=== PATIENT | male | born 1980 | race American Indian/Alaskan Native ===

== ENCOUNTER 2018-02-21 20:34 | Emergency (ER) | payer BC ==
[2018-02-21 20:57] VITALS: BP 160/94
[2018-02-21] MEDS ORDERED: TORADOL IM ONE (22:20)
--- NOTE | 2018-02-21 22:25 | Emergency Department Report ---
ED Neck Pain/Injury HPI - General Chief Complaint: Neck Pain/Injury Stated Complaint: NECK PAIN Time Seen by Provider: 02/21/18 22:20 Mode of arrival: Ambulatory Limitations: No Limitations - History of Present Illness Initial Comments: 37-year-old [place] male comes in for right posterior neck pain that radiates to his sats into his right shoulder. Patient was seen as followed in medical 2 weeks ago for the same issue and has not improved. Patient reports that he was placed on ibuprofen and muscle relaxant which she says has not helped. Patient reports that he woke up 2 weeks ago and thought it was a crick in his neck. Patient denies any trauma or injury to his neck or back. 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 Patient neck is constantly looking up and using a device to pick parts. Patient reports no past medical history currently takes no medications on a daily basis and has no known drug allergies. MD Complaint: neck pain -: week(s) (2) Place: home Radiation: right lateral Severity: severe Severity scale (0 -10): 10 Quality: sharp Consistency: intermittent Improves With: none Worsens With: movement of neck Context: turning/bending Associated Symptoms: none Treatments Prior to Arrival: Ibuprofen, other - Related Data Previous Rx's Medication Instructions Recorded Last Taken Type Naproxen [Naprosyn] 500 mg PO BID #20 tablet 02/21/18 Unknown Rx predniSONE [Deltasone] 20 mg PO QDAY 4 Days #4 tab 02/21/18 Unknown Rx traMADol [Ultram 50 MG tab] 50 mg PO Q6HR PRN #12 tablet 02/21/18 Unknown Rx Allergies Allergy/AdvReac Type Severity Reaction Status Date / Time No Known Allergies Allergy Unverified 02/21/18 20:57 ED Review of Systems ROS: Stated complaint: NECK PAIN Other details as noted in HPI Comment: All other systems reviewed and negative (muscle relaxant) Musculoskeletal: arthralgia (right side of neck) ED Past Medical Hx - Past Medical History Previous Medical History?: No - Surgical History Past Surgical History?: No - Social History Smoking Status: Unknown if ever smoked Substance Use Type: None - Medications Home Medications: Home Medications Medication Instructions Recorded Confirmed Last Taken Type Naproxen [Naprosyn] 500 mg PO BID #20 tablet 02/21/18 Unknown Rx predniSONE [Deltasone] 20 mg PO QDAY 4 Days #4 tab 02/21/18 Unknown Rx traMADol [Ultram 50 MG tab] 50 mg PO Q6HR PRN #12 tablet 02/21/18 Unknown Rx ED Physical Exam - General Limitations: No Limitations General appearance: alert, in no apparent distress - Head Head exam: Present: atraumatic, normocephalic - Eye Eye exam: Present: EOMI - ENT ENT exam: Present: mucous membranes moist - Neck Neck exam: Present: tenderness (paraspinal tenderness to the base on the right) , full ROM, other (full range of motion). Absent: meningismus, lymphadenopathy , thyromegaly - Respiratory Respiratory exam: Present: normal lung sounds bilaterally. Absent: respiratory distress - Cardiovascular Cardiovascular Exam: Present: regular rate, normal rhythm. Absent: systolic murmur, diastolic murmur, rubs, gallop - Extremities Exam Extremities exam: Present: full ROM - Expanded Neurological Exam Expanded Cranial nerves: EOM's Intact: Normal, Gag Reflex: Normal, Tongue Deviation: Normal, Nystagmus: Normal, Facial Sensation: Normal, Facial Palsy with Forehead Movement: Normal, Facial Palsy without Forehead Movement: Normal Cerebellar function: Finger to Nose: Normal, Heel to [place]: Normal, Romberg: Normal Sensory exam: Upper Extremity Light Touch: Normal, Upper Extremity Pin Prick: Normal, Upper Extremity Temperature: Normal, UE 2 Point Discrimination: Normal, Lower Extremity Light Touch: Normal, Lower Extremity Pin Prick: Normal Motor strength exam: RUE: 4, LUE: 4, RLE: 4, LLE: 4 Best Eye Response (Kiara): (4) open spontaneously Best Motor Response (Kiara): (6) obeys commands Best Verbal Response (Kiara): (5) oriented [place] Total: 15 - Psychiatric Psychiatric exam: Present: normal affect, normal mood - Skin Skin exam: Present: warm, dry, intact, normal color. Absent: rash ED Course Vital Signs 02/21/18 20:54 Temperature 98.5 F Pulse Rate 84 Respiratory 20 Rate Blood Pressure 160/94 O2 Sat by Pulse 98 Oximetry ED Medical Decision Making - Medical Decision Making Patient has been evaluated by this provider in fast track Patient will be given Toradol injection of 30 mg IM Will discharge patient on naproxen and steroids 20 mg by mouth daily for 4 days to see if we can get the inflammation down. Referral to orthopedist for reevaluation and possible physical therapy. Critical care attestation.: If time is entered above; I have spent that time in minutes in the direct care of this critically ill patient, excluding procedure time. ED Disposition Clinical Impression: Cervical myofascial strain Qualifiers: Encounter type: initial encounter Qualified Code(s): S16.1XXA - Strain of muscle, fascia and tendon at neck level, initial encounter Disposition: TO HOME OR SELFCARE Is pt being admited?: No Does the pt Need Aspirin: No Condition: Stable Instructions: Cervical Spine Strain (ED) Additional Instructions: Please take medication as prescribed. Is very important for you to follow up with orthopedist if symptoms persist or gets worse. Prescriptions: Naproxen [Naprosyn] 500 mg PO BID #20 tablet predniSONE [Deltasone] 20 mg PO QDAY 4 Days #4 tab traMADol [Ultram 50 MG tab] 50 mg PO Q6HR PRN #12 tablet PRN Reason: Pain Referrals: PRIMARY CARE, [Primary Care Provider] - 3-5 Days [facility] [Provider Group] - 3-5 Days [facility] [Provider Group] - 3-5 Days Forms: Work/School Release Form(ED)
== END 2018-02-21 22:51 | disposition home or self-care (01) ==
LOC: ED 20:34
DX: S16.1XXA Strain of muscle, fascia and tendon at neck level, initial encounter (principal); X58.XXXA Exposure to other specified factors, initial encounter; Y93.89 Activity, other specified; Y92.89 Other specified places as the place of occurrence of the external cause; Y99.8 Other external cause status
CPT/HCPCS: 96372; 99282; J1885